=== PATIENT | female | born 1975 | race Caucasian/White ===

== ENCOUNTER 2018-05-17 20:07 | Inpatient (IN) | payer OTHER ==
[~2018-05-17] VITALS: Ht 157.5 cm; Wt 87.5 kg
[~2018-05-17 20:07] MED LIST: ACET-5634 PO; CIPR500T4 PO; FERR325E14 PO; GABA300C PO; GLIP10TE PO; LISI10TA11 PO; METF500T2 PO; PIOG15TA2 PO; SULF1TAB12 PO; [UNRECOGNIZED DRUG - CODE] PO
[2018-05-17 20:08] VITALS: BP 158/94
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
[2018-05-17] MEDS ORDERED: PIPERACILLIN/TAZOBACTAM 3.375 GM in DEXTROSE 5% 50 ML IV ONE (20:45)
[2018-05-17] MEDS ORDERED: NACL 0.9% 1,000 ML IV ONE (20:45)
[2018-05-17] MEDS ORDERED: PIPERACILLIN/TAZOBACTAM 3.375 GM VIAL IV ONE (21:01)
[2018-05-17 21:14] LABS: BASOPHILS % (AUTO) 0.4 % (0.0-2.0); EOSINOPHILS % (AUTO) 0.3 % (0.0-4.0); HEMOGLOBIN 12.7 g/dL (12.0-16.0); LYMPHOCYTES # (AUTO) 1.1 K/uL (2.5-16.5); MEAN CORPUSCULAR HEMOGLOBIN 30 pg (27-31); MEAN CORPUSCULAR HGB CONC 34 g/dL (33-37); MEAN CORPUSCULAR VOLUME 85.8 fL (80-94); MONOCYTES # (AUTO) 0.7 K/uL (0.8-1.0); MONOCYTES % (AUTO) 9.3 % (1.7-9.3); NEUTROPHILS # (AUTO) 5.2 K/uL (1.8-7.7); PLATELET COUNT (AUTO) 194 K/uL (140-450); RED BLOOD CELL COUNT(AUTO) 4.31 MIL/uL (4.20-5.40); RED CELL DISTRIBUTION WIDTH 13.8 % (11.6-13.7); WHITE BLOOD COUNT (AUTO) 7.1 K/uL (4.8-10.8)
[2018-05-17] MEDS ORDERED: MORPHINE SULFATE 4 MG/ML SYR IVP ONE (21:15)
[2018-05-17 21:22] LABS: ANION GAP 8.4 (8-16); CARBON DIOXIDE 30.3 mmol/L (21-32); CHLORIDE 95 mmol/L (98-107); CREATININE 0.8 mg/dL (0.6-1.3); GFR ARICAN-AMERICAN 101 mL/min (>90); GLUCOSE 304 mg/dL (74-106); POTASSIUM 3.7 mmol/L (3.5-5.1); SODIUM SERUM 130 mmol/L (136-145); UREA NITROGEN, BLOOD 8 mg/dL (7-18)
[2018-05-17 21:28] LABS: ASPARTATE AMINOTRANSFERASE 68 U/L (15-37); TOTAL BILIRUBIN 1.4 mg/dL (0.0-1.0)
[2018-05-17 21:33] LABS: BILIRUBIN,URINE 1+ (NEGATIVE); BLOOD, URINE NEGATIVE (NEGATIVE); LEUKOCYTE ESTERASE ,URINE NEGATIVE (NEGATIVE); NITRITE, URINE NEGATIVE (NEGATIVE); PH,URINE 7.5 (5.0-9.0); UGLUCOSE 3+ (NEGATIVE)
[2018-05-17 21:38] LABS: APPEARANCE,URINE CLEAR (CLEAR); COLOR,URINE AMBER (YELLOW)
--- NOTE | 2018-05-17 22:00 | NUR ---
PT RESTING COMFORTABLY IN BED, RR EVEN AND UNLABORED. ALL NEEDS MET AT THIS TIME.
[2018-05-17] MEDS: NACL 0.9% 1,000 ML IV SCH (22:55)
[2018-05-17] MEDS ORDERED: VANCOMYCIN PER PHARMACY MC PRN (22:55)
[2018-05-17] MEDS ORDERED: ONDANSETRON 4 MG/2 ML VIAL IVP PRN (22:55)
[2018-05-17] MEDS ORDERED: DEXTROSE 50% 50 ML SYR IVP PRN (23:05)
[2018-05-17 23:30] VITALS: BP 169/87
[2018-05-17] MEDS ORDERED: VANCOMYCIN 1,500 MG in DEXTROSE 5% 500 ML IV SCH (23:30)
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
--- NOTE | 2018-05-17 23:30 | NUR ---
Patient will be admitted to care of DR. PEREZ. Admited to [facility]. Will go to room 116. Belongings list completed. Report to CARRI MADDOX.
--- NOTE | 2018-05-17 23:55 | NUR ---
Patient's Plan of Care was discussed and reviewed with ELECTRICAL MANUFACTURING TECHNICIAN: VARSHA LOMBARDO
[2018-05-18] MEDS ORDERED: DEXTROSE 50% 50 ML SYR IVP PRN (00:05)
[2018-05-18] MEDS ORDERED: VANCOMYCIN 1,000 MG VIAL ONE ×2 (00:28)
[2018-05-18] MEDS ORDERED: PIPERACILLIN/TAZOBACTAM 3.375 GM VIAL IV ONE (00:29)
[2018-05-18] MEDS: NACL 0.9% 1,000 ML IV SCH ×2 (00:52→13:35)
--- NOTE | 2018-05-18 01:13 | NUR ---
INFORMED DR. CORTEZ, PATIENT BLOOD PRESSURE HAS BEEN HIGH SINCE PATIENT CAME TO FLOOR, BP - 178/94 LOWEST AND HIGHEST - 185/96, HR - 99 TO 114. ORDERED PRN CLONIDINE FOR PATIENT.
[2018-05-18] MEDS ORDERED: cloNIDine 0.1 MG TAB PO PRN (01:15)
--- NOTE | 2018-05-18 01:35 | NUR ---
MEDICATED WITH CLONIDINE 0.1 MG PO ORDERED.
--- NOTE | 2018-05-18 01:45 | NUR ---
COMPLAINT OF FEELING WARM. TEMP CHECKED - 102.4 F, MEDICATED WITH TYLENOL ORDERED. COOLING MEASURES GIVEN.
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
[2018-05-18] MEDS ORDERED: ACETAMINOPHEN 325 MG TAB PO PRN (02:05)
--- NOTE | 2018-05-18 03:05 | NUR ---
BP CHECKED - 146/86, HR - 96. CALM AND RESTING COMFORTABLY IN BED.
[2018-05-18 04:00] VITALS: BP 148/85
[2018-05-18] MEDS: oxyCODONE/APAP 5/325 MG 1 TAB TAB PO PRN ×4 (04:38→18:44)
--- NOTE | 2018-05-18 04:43 | NUR ---
TEMPERATURE CHECKED - 99.1, AFEBRILE.
[2018-05-18] MEDS ORDERED: PIPERACILLIN/TAZOBACTAM 3.375 GM in DEXTROSE 5% 50 ML IV SCH (05:00)
[2018-05-18] MEDS: INSULIN LISPRO SLIDING SCALE 100 UNITS/ML VIAL SUBQ PRN ×2 (06:14→12:00)
--- NOTE | 2018-05-18 06:33 | NUR ---
CONDITION REMAIN STABLE. ALL NEEDS ATTENDED. WILL ENDORSE TO AM NURSE FOR CONTINUITY OF CARE.
[2018-05-18 06:52] LABS: BASOPHILS # (AUTO) 0.1 K/uL (0.00-0.22); BASOPHILS % (AUTO) 1.4 % (0.0-2.0); EOSINOPHILS % (AUTO) 0.1 % (0.0-4.0); HEMATOCRIT 31.2 % (36-48); HEMOGLOBIN 11.2 g/dL (12.0-16.0); LYMPHOCYTES # (AUTO) 1.2 K/uL (2.5-16.5); LYMPHOCYTES % (AUTO) 13.5 % (20.5-51.1); MEAN CORPUSCULAR HEMOGLOBIN 31 pg (27-31); MEAN CORPUSCULAR HGB CONC 36 g/dL (33-37); MEAN CORPUSCULAR VOLUME 85.4 fL (80-94); MONOCYTES # (AUTO) 0.6 K/uL (0.8-1.0); MONOCYTES % (AUTO) 6.2 % (1.7-9.3); NEUTROPHILS # (AUTO) 7.2 K/uL (1.8-7.7); NEUTROPHILS % (AUTO) 78.8 % (42.2-75.2); PLATELET COUNT (AUTO) 172 K/uL (140-450); RED BLOOD CELL COUNT(AUTO) 3.66 MIL/uL (4.20-5.40); RED CELL DISTRIBUTION WIDTH 13.8 % (11.6-13.7); WHITE BLOOD COUNT (AUTO) 9.1 K/uL (4.8-10.8)
[2018-05-18 07:08] LABS: ALBUMIN 2.5 g/dL (3.4-5.0); ANION GAP 11.3 (8-16); CARBON DIOXIDE 26.3 mmol/L (21-32); CREATININE 0.7 mg/dL (0.6-1.3); POTASSIUM 3.6 mmol/L (3.5-5.1); TOTAL BILIRUBIN 1.5 mg/dL (0.0-1.0)
--- NOTE | 2018-05-18 07:25 | NUR ---
ENDORSED TO AM NURSE FOR CONTINUITY OF CARE.
--- NOTE | 2018-05-18 07:26 | NUR ---
PATIENT IS SLEEPING. NO SIGNS OF DISTRESS ON ROOM AIR. L LEG WOUND/CELLULITIS SITE MONITOR. MINIMAL DRAINAGE SEROSANGUINEOUS. IV ON L AC 20G INFUSING NS AT 75. IV IS CLEAN, DRY AND INTACT. BED SIDE COMMODE AT BEDSIDE. PATIENT HAS WEAKNESS FROM THE PAIN ON L LEG. BED IN LOW POSITION. CALL LIGHT WITHIN REACH. WILL CONTINUE TO MONITOR THE PATIENT.
[2018-05-18] MEDS ORDERED: BLOOD GLUCOSE MONITORING 1 DEV DEV FS SCH (07:30)
[2018-05-18] MEDS: BLOOD GLUCOSE MONITORING 1 DEV DEV FS SCH ×4 (07:38→21:00)
[2018-05-18 08:00] VITALS: BP 125/81
[2018-05-18] MEDS: LISINOPRIL 10 MG TAB PO SCH (08:55)
[2018-05-18] MEDS: PIOGLITAZONE 15 MG TAB PO SCH (08:55)
[2018-05-18] MEDS: FERROUS SULFATE 325 MG TABEC PO SCH ×2 (08:55→17:26)
[2018-05-18] MEDS: glipiZIDE ER 5 MG TABER PO SCH (08:56)
[2018-05-18] MEDS: ENOXAPARIN 40 MG/0.4 ML SYR SUBQ SCH (08:59)
[2018-05-18] MEDS ORDERED: PIOGLITAZONE 15 MG TAB PO SCH (09:00)
[2018-05-18] MEDS ORDERED: FERROUS SULFATE 325 MG TABEC PO SCH (09:00)
[2018-05-18] MEDS ORDERED: glipiZIDE ER 5 MG TABER PO SCH (09:00)
[2018-05-18] MEDS ORDERED: METFORMIN HCL 1000 MG PO SCH (09:00)
[2018-05-18] MEDS ORDERED: VANCOMYCIN 1GM/DEXT 5% PREMIX 200 ML IV SCH (09:00)
[2018-05-18] MEDS ORDERED: LISINOPRIL 10 MG TAB PO SCH (09:00)
--- NOTE | 2018-05-18 09:25 | NUR ---
CHANGED BEDSHEETS WITH STAFF ASSISTANT. PATIENT DROPPED COFFEE. PATIENT SITTING ON CHAIR. TRANSFERRED FROM CHAIR TO BEDSIDE COMMODE, WEAKNESS FROM L LEG CELLULITIS/WOUND. GOT A URINE SAMPLE. PATIENT BACK IN BED. ADMINISTERED MEDS AND PRN PAIN MED. PATIENT TOLERATED WELL. CLEANSED WOUND WITH NS AND PLACED A BANDAGE. BED IN LOW POSITION. CALL LIGHT WITHIN REACH. WILL CONTINUE TO MONITOR THE PATIENT.
--- NOTE | 2018-05-18 10:17 | NUR ---
PATIENT HAS BEEN SCREENED AND CATEGORIZED HIGH NUTRITION RISK. PATIENT WILL BE SEEN WITHIN 1-2 DAYS OF ADMISSION. 05/18/18 05/19/[address]
--- NOTE | 2018-05-18 11:18 | NUR ---
PATIENT IS SLEEPING. NO SIGNS OF DISTRESS ON ROOM AIR. BED IN LOW POSITION. CALL LIGHT WITHIN REACH. WILL CONTINUE TO MONITOR THE PATIENT.
[2018-05-18] MEDS: PIPER/TAZO 3.375GM/D5W PREMIX 50 ML IV SCH ×3 (12:01→23:36)
--- NOTE | 2018-05-18 12:04 | NUR ---
ADMINISTERED MEDS. PATIENT TOLERATED WELL. BED IN LOW POSITION. CALL LIGHT WITHIN REACH. WILL CONTINUE TO MONITOR THE PATIENT.
--- NOTE | 2018-05-18 13:37 | NUR ---
ADMINISTERED PAIN MEDS. PATIENT TOLERATED WELL. IVF NS INFUSING AT 75, IV IS CLEAN, DRY AND INTACT. WAITING FOR PHARMACY FOR THE VANCOMYCIN.
[2018-05-18] MEDS: VANCOMYCIN 1,250 MG in DEXTROSE 5% 250 ML IV SCH (14:33)
--- NOTE | 2018-05-18 14:41 | NUR ---
ADMINISTERED MEDS. PATIENT TOLERATED WELL. IV IS CLEAN, DRY AND INTACT. WILL CONTINUE TO MONITOR THE PATIENT
[2018-05-18 16:00] VITALS: BP 111/77
--- NOTE | 2018-05-18 16:55 | NUR ---
FAXED INITIAL REVIEW TO [facility] [phone] PHONE ELÍAS [phone]
[2018-05-18] MEDS: metFORMIN 500 MG TAB PO SCH (17:27)
--- NOTE | 2018-05-18 17:30 | NUR ---
ADMINISTERED MEDS. PATIENT TOLERATED WELL. PATIENT USED BEDSIDE COMMODE, PATIENT BACK ON BED. WILL CONTINUE TO MONITOR THE PATIENT.
--- NOTE | 2018-05-18 19:15 | NUR ---
GAVE BEDSIDE REPORT TO OPTIONS TRADER NURSE. PATIENT IS IN STABLE CONDITION
--- NOTE | 2018-05-18 19:17 | NUR ---
RECEIVED REPORT FROM DAY SHIFT NURSE. AAOX4. NO C/O PAIN. NO RESP DISTRESS NOTED. IV TO LEFT AC #20G, NS AT 75 ML/HR, INFUSING WELL. DRESSING TO LEFT LOWER EXT., CLEAN, DRY AND INTACT. DISCUSSED PLAN OF CARE. PT VERBALIZED UNDERSTANDING. SAFETY PRECAUTION IN PLACE. CALL LIGHT WITHIN REACH.
[2018-05-18] MEDS ORDERED: GABAPENTIN 300 MG CAP PO SCH (21:00)
--- NOTE | 2018-05-18 21:00 | NUR ---
BS CHECKED 138. NO INSULIN COVERAGE. DUE MEDS GIVEN. PT TOLERATED WELL. PT ASKED FOR SNACK. SNACK PROVIDED. NO C/O PAIN.
--- NOTE | 2018-05-18 23:15 | NUR ---
DRESSING CHANGED TO LEFT LOWER EXT. PT DENIES PAIN.
[2018-05-19] VITALS: BP 117/73
[2018-05-19] MEDS: NACL 0.9% 1,000 ML IV SCH (01:35)
[2018-05-19] MEDS: VANCOMYCIN 1,250 MG in DEXTROSE 5% 250 ML IV SCH ×3 (01:40→15:43)
--- NOTE | 2018-05-19 01:50 | NUR ---
PT SLEEPING BUT EASILY AROUSABLE. NO S/S OF DISTRESS NOTED. SAFETY PRECAUTION IN PLACE.
[2018-05-19] MEDS: oxyCODONE/APAP 5/325 MG 1 TAB TAB PO PRN ×2 (03:16→10:23)
--- NOTE | 2018-05-19 03:16 | NUR ---
PT C/O LEFT LOWE LED PAIN 6/10 SCALE. PERCOCET 5/325 MG GIVEN ORDERED.
[2018-05-19] MEDS: PIPER/TAZO 3.375GM/D5W PREMIX 50 ML IV SCH ×2 (05:29→12:18)
--- NOTE | 2018-05-19 05:40 | NUR ---
PT SLEEPING BUT AROUSABLE. RESP EVEN AND UNLABORED. NO S/S OF PAIN. SAFETY PRECAUTION IN PLACE.CALL LIGHT WITHIN REACH.
[2018-05-19] MEDS: INSULIN LISPRO SLIDING SCALE 100 UNITS/ML VIAL SUBQ PRN ×2 (06:35→12:12)
--- NOTE | 2018-05-19 07:20 | NUR ---
ENDORSED PT TO DAY SHIFT NURSE. PT IN STABLE CONDITION.
[2018-05-19 07:21] LABS: BASOPHILS % (AUTO) 0.8 % (0.0-2.0); EOSINOPHILS # (AUTO) 0.1 K/uL (0-0.4); EOSINOPHILS % (AUTO) 2.9 % (0.0-4.0); HEMATOCRIT 31.2 % (36-48); LYMPHOCYTES # (AUTO) 1.4 K/uL (2.5-16.5); LYMPHOCYTES % (AUTO) 31.9 % (20.5-51.1); MEAN CORPUSCULAR HEMOGLOBIN 30 pg (27-31); MEAN CORPUSCULAR HGB CONC 35 g/dL (33-37); MONOCYTES # (AUTO) 0.5 K/uL (0.8-1.0); MONOCYTES % (AUTO) 10.6 % (1.7-9.3); NEUTROPHILS # (AUTO) 2.4 K/uL (1.8-7.7); NEUTROPHILS % (AUTO) 53.8 % (42.2-75.2); PLATELET COUNT (AUTO) 178 K/uL (140-450); RED BLOOD CELL COUNT(AUTO) 3.63 MIL/uL (4.20-5.40); RED CELL DISTRIBUTION WIDTH 13.3 % (11.6-13.7); WHITE BLOOD COUNT (AUTO) 4.5 K/uL (4.8-10.8)
--- NOTE | 2018-05-19 07:30 | NUR ---
RECEIVED PT AAOX4. NO SOB NOTED. NO C/O PAIN AT THIS TIME. IV TO LT AC PATENT AND INTACT. CHEST CLEAR. ABDOMEN SOFT, BOWEL SOUNDS PRESENT. LEFT LEG WOUND DRESSING DRY AND INTACT. INSTRUCTED PT TO CALL FOR ASSISTANCE, CALL LIGHT WITHIN REACH, PT VERBALIZED UNDERSTANDING.
[2018-05-19] MEDS: BLOOD GLUCOSE MONITORING 1 DEV DEV FS SCH ×2 (07:39→12:11)
[2018-05-19 08:00] VITALS: BP 130/81
[2018-05-19 08:49] LABS: CREATININE 0.6 mg/dL (0.6-1.3); POTASSIUM 3.6 mmol/L (3.5-5.1)
--- NOTE | 2018-05-19 09:00 | NUR ---
PT REFUSED ALL DUE MEDICATIONS AND STATED SHE WANTS TO GO HOME AGAINST MEDICAL ADVICE. RISKA AND CONSEQUENCES EXPALINED TO PT, VERBALIZED UNDERSTANDING. Addendum: 05/19/18 at 1234 by Lyn Reyes RN PT STATED SHE WANTS TO GO IF DOCTOR ANA STILL PUT HER ON ORAL PAIN MEDS, PT STATED ORAL PAIN MEDS CAN NOT CONTROL HER LEG PAIN. DR. PEREZ NOTIFIED.
[2018-05-19 09:02] LABS: ANION GAP 9.7 (8-16); CARBON DIOXIDE 27.9 mmol/L (21-32)
--- NOTE | 2018-05-19 09:30 | NUR ---
SPOKE WITH PT'S SISTER MAYRA ([phone]) REGARDING PT'S PLAN OF GOING HOME AGAINST MEDICAL ADVICE, MAYRA STATED SHE WILL NOT CONSULTING PROPERTY MANAGER THE PT IF THERE IS NO ACTUAL DISCHARGE ORDER FROM THE DOCTOR. PT MADE AWARE.
[2018-05-19] MEDS: FERROUS SULFATE 325 MG TABEC PO SCH (10:24)
[2018-05-19] MEDS: glipiZIDE ER 5 MG TABER PO SCH (10:24)
[2018-05-19] MEDS: LISINOPRIL 10 MG TAB PO SCH (10:25)
[2018-05-19] MEDS: PIOGLITAZONE 15 MG TAB PO SCH (10:25)
[2018-05-19] MEDS: metFORMIN 500 MG TAB PO SCH (10:25)
[2018-05-19] MEDS: ENOXAPARIN 40 MG/0.4 ML SYR SUBQ SCH (10:26)
--- NOTE | 2018-05-19 10:58 | NUR ---
NOTIFIED TERESA (PT) REGARDING THE PT EVAL.
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
--- NOTE | 2018-05-19 14:03 | NUR ---
FAXED CONCURRENT REVIEW TO [facility] [phone] PHONE ELÍAS [phone]
--- NOTE | 2018-05-19 14:45 | NUR ---
Marketing Forecaster Notes: I met with patient to discuss, her status, discharge plan, and MD recommendations. Per Patient she wants to discharge today to her sister in law's. I asked Patient if she be willing or consider going to a SNF short term for antibiotics, P.T. and wound care if MD makes the recommendations. Patient got really upset and started to cry and raised her voice stating " I do not want to go to a [facility] fpc" I want to go today" Patient then got in the phone and call her sister In Law "Leila" She was crying and upset on the phone explaining her that she wanted to discharge today. She then ask me to talk to her. I explained to Leila what I previously explained to Patient. Per Leila (Sister in- Law) She will not shrimp picker patient and take her home if she lives AMA or with out a discharge plan. Patient calm down and give her the phone back to speak to her sister In-Law. Patient told her she will do whatever she wants and will probably will discharge today. When Patient Hang up I asked her again if she will go to SNF if recommended. Patient stated " No I dont want to go, I will go with my boyfriend if Leila (sister In-Law) wont pick me up; But I will need a bus pass" I thanked her for the information and I ended that meeting.
--- NOTE | 2018-05-19 15:40 | NUR ---
EXPLAINED TO PT DR. PEREZ' ORDER FOR SNF FOR REHAB AND WOUND CARE BUT PT REFUSED AND SIGNED AMA. RISKS AND CONSEQUENCES EXPLAINED TO PT, VERBALIZED UNDERSTANDING.
[2018-05-19 16:00] VITALS: BP 129/75
--- NOTE | 2018-05-19 16:15 | NUR ---
PRESENT IV REMOVED, CANNULA TIP INTACT. DRESSING TO LEFT LEG WOUND DRY AND INTACT. PT PROVIDED WITH DRESSING SUPPLIES, WOUND CARE TEACHINGS GIVEN, VERBALIZED UNDERSTANDING/ PT WHEELED TO THE PARKING LOT IN STABLE CONDITION. PT WENT AMA, PT'S SISTER MAYRA IS GIVING THE PT RIDE TO HER BOYFRIEND'S PLACE. DR. PEREZ NOTIFIED WITH THE AMA.
--- NOTE | 2018-05-19 16:24 | NUR ---
05/19/18 RD INITIAL ASSESSMENT COMPLETED PLEASE REFER TO NUTRITION ASSESSMENT UNDER CARE ACTIVITY FOR ESTIMATED NUTRITIONAL NEEDS. [facility]. [facility] 2. ADDITIONAL FOLLOW-UP NUTRITION EDUCATION IF NEEDED 3. RD TO FOLLOW-UP 5-7 DAYS, LOW RISK RISK ROCIO HIDALGO, RD
[2018-05-20] MEDS ORDERED: VANCOMYCIN 1,250 MG in DEXTROSE 5% 250 ML IV SCH (03:00)
[2018-05-20] MEDS ORDERED: NACL 0.9% IRR 250 ML BOTTLE IR SCH (13:00)
== END 2018-05-19 16:15 | disposition left against medical advice (07) | DRG 383 ==
LOC: MED 20:07 → MTU 23:03
PROVIDERS: ADMIT Hospitalist; ATTEND Hospitalist
DX: L03.116 Cellulitis of left lower limb (principal); E11.42 Type 2 diabetes mellitus with diabetic polyneuropathy; E44.1 Mild protein-calorie malnutrition; I10 Essential (primary) hypertension; S81.832A Puncture wound without foreign body, left lower leg, initial encounter; E87.1 Hypo-osmolality and hyponatremia; F10.10 Alcohol abuse, uncomplicated; F17.210 Nicotine dependence, cigarettes, uncomplicated; E11.65 Type 2 diabetes mellitus with hyperglycemia; W17.89XA Other fall from one level to another, initial encounter; Z53.21 Procedure and treatment not carried out due to patient leaving prior to being seen by health care provider; Z59.0 Homelessness; Z68.35 Body mass index [BMI] 35.0-35.9, adult; Z91.19 Patient's noncompliance with other medical treatment and regimen; Y93.89 Activity, other specified; Y92.89 Other specified places as the place of occurrence of the external cause; Y99.8 Other external cause status
CPT/HCPCS: 36415; 71045; 80048; 80053; 80202; 81003; 82948; 83036; 85025; 87040; 87070; 87081; 87086; 87186; 93005; 96365; 96375; 97110; 97140; 99285; G0482; J1650; J1815; J2270; J2543; J3370; J7030; J7060; Q0092

== ENCOUNTER 2019-09-06 11:01 | Inpatient (IN) | payer OTHER ==
[~2019-09-06] VITALS: Ht 167.6 cm; Wt 81.6 kg
[2019-09-06 11:01] VITALS: BP 144/97
--- NOTE | 2019-09-06 11:01 | NUR ---
Patient BIBA BLS, transferred to bed 3. RN evaluating patient at bedside.
--- NOTE | 2019-09-06 11:11 | NUR ---
C/O N/V SINCE LAST NIGHT WITH GENERALIZED BODY PAIN, PT STATES "EVERYTHING HURTS" PT WAS FOUND EHIND STATER BROTHERS HX HTN, DM, PT IS NON COMPLIANT WITH MEDICATIONS . DENIES N/V/D; SKIN IS PINK/WARM/DRY; AAOX4 WITH EVEN AND STEADY GAIT; LUNGS CLEAR BL; HR EVEN AND REGULAR; PT DENIES ANY FEVER, CP, SOB, OR COUGH AT THIS TIME; PATIENT STATES PAIN OF 7/10 AT THIS TIME; VSS; PATIENT POSITIONED FOR COMFORT; HOB ELEVATED; BEDRAILS UP X2; BED DOWN. ER MD MADE AWARE OF PT STATUS.
[2019-09-06] MEDS ORDERED: NACL 0.9% 2,000 ML IV SCH (11:36)
[2019-09-06] MEDS ORDERED: ONDANSETRON 4 MG/2 ML VIAL IVP ONE ×2 (11:40→14:10)
[2019-09-06] MEDS ORDERED: KETOROLAC 30 MG/ML VIAL IVP ONE (11:40)
--- NOTE | 2019-09-06 12:06 | NUR ---
Dr. Godinez evaluating patient at bedside.
[2019-09-06 12:53] LABS: ANION GAP 11.3 (8-16); CREATININE 0.7 mg/dL (0.6-1.3); POTASSIUM 4.3 mmol/L (3.5-5.1)
[2019-09-06] MEDS ORDERED: PIPERACILLIN/TAZOBACTAM 3.375 GM in DEXTROSE 5% 50 ML IV ONE (12:55)
[2019-09-06 13:01] LABS: ALBUMIN 2.5 g/dL (3.4-5.0); TOTAL BILIRUBIN 1.7 mg/dL (0.0-1.0)
[2019-09-06] MEDS ORDERED: INSULIN REGULAR, HUMAN 100 UNIT/ML VIAL SUBQ ONE (13:05)
[2019-09-06] MEDS ORDERED: PIPERACILLIN/TAZOBACTAM 3.375 GM VIAL IV ONE (13:19)
[2019-09-06] MEDS ORDERED: LACTULOSE 20 GM/30 ML UDC PO ONE (13:25)
[2019-09-06 13:49] LABS: HEMATOCRIT 36.2 % (36-48); HEMOGLOBIN 12.1 g/dL (12.0-16.0); MEAN CORPUSCULAR HEMOGLOBIN 28 pg (27-31); MEAN CORPUSCULAR HGB CONC 33 g/dL (33-37); MEAN CORPUSCULAR VOLUME 84.2 fL (80-94); PLATELET COUNT (AUTO) 183 K/uL (140-450); RED BLOOD CELL COUNT(AUTO) 4.31 MIL/uL (4.20-5.40); RED CELL DISTRIBUTION WIDTH 16.2 % (11.6-13.7); WHITE BLOOD COUNT (AUTO) 2.9 K/uL (4.8-10.8)
[2019-09-06 14:24] LABS: BARBITURATE, URINE NEG. ng/ml (NEG <=200); BENZODIAZEPINE, URINE NEG. ng/mL (NEG <=200); CANNABINOID, URINE NEG. ng/mL (NEG <=50); COCAINE, URINE NEG. ng/mL (NEG <=300); OPIATE, URINE NEG. ng/mL (NEG <=2000); PHENCYCLIDINE SCREEN,URINE NEG. ng/mL (NEG <=25)
--- NOTE | 2019-09-06 14:24 | NUR ---
PT THROWED UP AFTER EATTING LUNCH, ZOFRAN GIVEN ORDERED.
[2019-09-06 14:29] LABS: APPEARANCE,URINE SL CLOUDY (CLEAR); BILIRUBIN,URINE 2+ (NEGATIVE); BLOOD, URINE NEGATIVE (NEGATIVE); COLOR,URINE ORANGE (YELLOW); LEUKOCYTE ESTERASE ,URINE TRACE (NEGATIVE); NITRITE, URINE POSITIVE (NEGATIVE); UGLUCOSE 3+ (NEGATIVE)
[2019-09-06 14:35] LABS: LYMPHOCYTES % (MANUAL) 28 % (20-46); MONOCYTES % (MANUAL) 7 % (5-12)
[2019-09-06 14:56] LABS: RBC,URINE NONE SEEN /HPF (0-5); WBC,URINE 0-5 /HPF (0-5)
--- NOTE | 2019-09-06 15:00 | NUR ---
pt sleeping in bed. no s/s of respiratory distress noted.
[2019-09-06] MEDS ORDERED: DEXTROSE 50% 50 ML SYR IVP PRN (15:35)
[2019-09-06] MEDS ORDERED: ONDANSETRON 4 MG/2 ML VIAL IVP PRN (15:40)
[2019-09-06] MEDS ORDERED: HYDROcodone/APAP 5/325 MG 1 TAB TAB PO PRN (15:40)
[2019-09-06] MEDS ORDERED: ACETAMINOPHEN 325 MG TAB PO PRN (15:40)
[2019-09-06] MEDS ORDERED: ALBUTEROL 0.083% 2.5 MG/3 ML NEBU INH PRN (15:40)
[2019-09-06] MEDS: BLOOD GLUCOSE MONITORING 1 DEV DEV FS SCH ×2 (16:30→21:10)
--- NOTE | 2019-09-06 16:39 | NUR ---
Pt report given to Clay brasher . Transfer of care at this time. pt went to [address] tele
[2019-09-06 16:40] VITALS: BP 130/80
[2019-09-06] MEDS: NACL 0.9% 1,000 ML IV SCH (17:18)
[2019-09-06] MEDS: MORPHINE SULFATE 4 MG/ML SYR IVP PRN ×2 (17:19→21:06)
[2019-09-06] MEDS: FERROUS SULFATE 325 MG TABEC PO SCH (17:20)
--- NOTE | 2019-09-06 17:30 | NUR ---
SCHEDULED MEDICATIONS DUE GIVEN. WILL CONTINUE TO MONITOR.
[2019-09-06] MEDS: INSULIN LISPRO SLIDING SCALE 100 UNITS/ML VIAL SUBQ PRN ×2 (18:00→21:10)
--- NOTE | 2019-09-06 19:30 | NUR ---
RECEIVED PT SLEEPING, EASILY AROUSABLE, AAOX4, VITAL SIGNS TAKEN, BP SLIGHTLY ELEVATED, DENIES CHEST PAIN BUT COMPLAINING OF ABDOMINAL PAIN, WILL MEDICATE PRN, IVF INFUSING WELL, PLAN OF CARE DISCUSSED, INSTRUCTED NPO AFTER MIDNIGHT FOR US ABDOMEN TOMORROW AM, SAFETY MEASURES IN PLACE, CALL LIGHT WITHIN REACH.
--- NOTE | 2019-09-06 19:49 | NUR ---
GAVE REPORT TO TOOLROOM CLERK NURSE FOR CONTINUITY OF CARE. PATIENT IN STABLE CONDITION.
[2019-09-06 20:00] VITALS: BP 148/90
--- NOTE | 2019-09-06 20:23 | NUR ---
PATIENT IS UNABLE TO DO INCENTIVE SPIROMETER AT THIS TIME. ROOM AIR SATS 96%. NO SOB NOTED
[2019-09-06] MEDS: GABAPENTIN 300 MG CAP PO SCH (21:05)
--- NOTE | 2019-09-06 21:10 | NUR ---
BLOOD SUGAR CHECKED WITH 223 RESULT, COVERAGE GIVEN, SNACK PROVIDED, DUE MEDICATION ADMINISTERED WITH EDUCATION PROVIDED, ALL NEEDS ATTENDED.
[2019-09-07] VITALS: BP 154/95
--- NOTE | 2019-09-07 | NUR ---
PT SLEEPING, EASILY AROUSABLE, VITAL SIGNS TAKEN, BP SLIGHTLY ELEVATED, DENIES CHEST PAIN BUT COMPLAINING OF LEG PAIN,MADE AWARE OF NEXT DUE TIME, PT FORGETFUL AT TIMES, REORIENT TO TIME AND PLACE, IVF INFUSING WELL, CONTINUE TO MONITOR CLOSELY.
[2019-09-07] MEDS: MORPHINE SULFATE 4 MG/ML SYR IVP PRN ×5 (01:38→21:16)
--- NOTE | 2019-09-07 01:40 | NUR ---
PT AMBULATED TO BR WITH ASSIST, VOIDED FREELY, ASSISTED BACK TO BED, COMPLAINING OF LEG PAIN, MEDICATED PRN WITH MORPHINE IVP, MONITORED CLOSELY.
[2019-09-07 04:00] VITALS: BP 140/87
--- NOTE | 2019-09-07 04:00 | NUR ---
PT SLEEPING, EASILY AROUSABLE, VITAL SIGNS STABLE, DENIES ANY PAIN, IVF INFUSING WELL, MONITORED CLOSELY.
[2019-09-07] MEDS: NACL 0.9% 1,000 ML IV SCH ×2 (05:54→18:31)
[2019-09-07] MEDS: INSULIN LISPRO SLIDING SCALE 100 UNITS/ML VIAL SUBQ PRN ×4 (05:58→20:38)
--- NOTE | 2019-09-07 06:00 | NUR ---
AM LABS DRAWN, BLOOD SUGAR CHECKED WITH 182 RESULT, COVERAGE GIVEN, MEDICATED PRN FOR LEG PAIN WITH MORPHINE IVP, MONITORED CLOSELY.
[2019-09-07 06:29] LABS: BASOPHILS % (AUTO) 0.6 % (0.0-2.0); EOSINOPHILS # (AUTO) 0.1 K/uL (0-0.4); EOSINOPHILS % (AUTO) 2.1 % (0.0-4.0); HEMATOCRIT 31.3 % (36-48); HEMOGLOBIN 10.4 g/dL (12.0-16.0); LYMPHOCYTES # (AUTO) 0.8 K/uL (2.5-16.5); LYMPHOCYTES % (AUTO) 29.7 % (20.5-51.1); MEAN CORPUSCULAR HEMOGLOBIN 28 pg (27-31); MEAN CORPUSCULAR HGB CONC 33 g/dL (33-37); MEAN CORPUSCULAR VOLUME 84.3 fL (80-94); MONOCYTES # (AUTO) 0.4 K/uL (0.8-1.0); MONOCYTES % (AUTO) 13.8 % (1.7-9.3); NEUTROPHILS # (AUTO) 1.4 K/uL (1.8-7.7); NEUTROPHILS % (AUTO) 53.8 % (42.2-75.2); PLATELET COUNT (AUTO) 155 K/uL (140-450); RED BLOOD CELL COUNT(AUTO) 3.72 MIL/uL (4.20-5.40); RED CELL DISTRIBUTION WIDTH 16.2 % (11.6-13.7); WHITE BLOOD COUNT (AUTO) 2.6 K/uL (4.8-10.8)
[2019-09-07] MEDS: BLOOD GLUCOSE MONITORING 1 DEV DEV FS SCH ×4 (06:33→20:40)
[2019-09-07 06:52] LABS: ALBUMIN 2.1 g/dL (3.4-5.0); ANION GAP 9.1 (8-16); CARBON DIOXIDE 26.6 mmol/L (21-32); CREATININE 0.6 mg/dL (0.6-1.3); POTASSIUM 3.7 mmol/L (3.5-5.1); TOTAL BILIRUBIN 0.9 mg/dL (0.0-1.0)
[2019-09-07 06:54] LABS: MAGNESIUM 1.4 mg/dL (1.8-2.4); PHOSPHORUS 3.2 mg/dL (2.5-4.9)
--- NOTE | 2019-09-07 07:15 | NUR ---
RECEIVED BEDSIDE REPORT FROM CALIBRATION LABORATORY TECHNICIAN NURSE. PT IS GETTING ABD US AT THIS TIME. PT IN NO ACUTE DISTRESS OR SOB. PT IS ON ROOM AIR, SKIN INTACT, ALTHOUGH DRY SCABS NOTED ON BILATERAL ARMS. IV SITE NOTED IN THE L HAND 24 G, INFUSING NS 75 ML/HR. FALL PRECAUTIONS IN PLACE, CALL LIGHT IS WITHIN REACH. WILL CONTINUE TO MONITOR.
--- NOTE | 2019-09-07 07:17 | NUR ---
PT CURRENTLY HAVING ULTRASOUND OF ABDOMEN TAKEN AT BEDSIDE, NO DISTRESS NOTED, REPORT GIVEN TO REJI CARDONA FOR CONTINUITY OF CARE.
[2019-09-07 08:00] VITALS: BP 146/86
--- NOTE | 2019-09-07 08:25 | NUR ---
PATIENT HAS BEEN SCREENED AND CATEGORIZED MODERATE NUTRITION RISK. PATIENT WILL BE SEEN WITHIN 3-5 DAYS OF ADMISSION. 09/09/19 09/11/[address]
[2019-09-07] MEDS ORDERED: MULTIVIT TH IRON OTHER MIN PO SCH (09:00)
[2019-09-07] MEDS: glipiZIDE ER 5 MG TABER PO SCH (09:11)
[2019-09-07] MEDS: LISINOPRIL 10 MG TAB PO SCH (09:12)
[2019-09-07] MEDS: PIOGLITAZONE 15 MG TAB PO SCH (09:12)
[2019-09-07] MEDS: FERROUS SULFATE 325 MG TABEC PO SCH ×2 (09:12→17:00)
[2019-09-07] MEDS: MULTIVITAMIN/MINERALS 1 TAB PO SCH (09:12)
--- NOTE | 2019-09-07 09:14 | NUR ---
AM MEDS ADMINISTERED, PT TOLERATED WELL. PT ATE 100% OF HER BREAKFAST.
[2019-09-07 12:00] VITALS: BP 158/98
[2019-09-07] MEDS: LACTULOSE 20 GM/30 ML UDC PO SCH ×2 (12:15→20:31)
--- NOTE | 2019-09-07 12:25 | NUR ---
PT EATING LUNCH, PT IS IN NO ACUTE DISTRESS. WILL CONTINUE TO MONITOR.
[2019-09-07 16:00] VITALS: BP 152/92
--- NOTE | 2019-09-07 16:17 | NUR ---
Radio Station Operator Note: I met with patient at bedside to conduct assessment. However, patient refused to provide me with information. She stated she does not need community resources nor needs director of social work assistance. She stated she is planning to go to her sister's home upon discharge upon discharged. I attempted to obtain information about her sister's contact information. However, patient stated she already provided someone with it and refused to tell me who she gave information to and refused to provide me with her sister's contact information.
--- NOTE | 2019-09-07 19:00 | NUR ---
PAGED DR ARCHIBALD ABOUT PT MAG 1.4. WAITING CALL BACL Addendum: 09/07/19 at 1915 by Debora Mondragon RN DR. CRISTELA HUGHES MAR SULFATE IV 4000 MG
--- NOTE | 2019-09-07 19:20 | NUR ---
PT ENDORSED TO RN TELEPHONE TRIAGE IN STABLE CONDITION
--- NOTE | 2019-09-07 19:21 | NUR ---
RECEIVED PT SLEEPING, EASILY AROUSABLE, AAOX3, FORGETFUL AT TIMES, ABLE TO MAKE NEEDS KNOWN, VITAL SIGNS SLIGHTLY ELEVATED BUT STABLE, DENIES CHEST PAIN BUT COMPLAINING OF LEG PAIN, WILL MEDICATE PRN, IVF INFUSING WELL, PLAN OF CARE DISCUSSED, SAFETY MEASURES IN PLACE, BED ALARM ON, CALL LIGHT WITHIN REACH.
[2019-09-07] MEDS ORDERED: MAG SULF 2000 MG/WATER PREMIX 50 ML IV SCH (19:45)
[2019-09-07] MEDS: GABAPENTIN 300 MG CAP PO SCH (20:31)
--- NOTE | 2019-09-07 21:28 | NUR ---
PT MEDICATED PRN WITH MORPHINE FOR LEG, PT VOMITED MUSHY FOOD MODERATE AMOUNT, ZOFRAN IVP GIVEN PRN, MONITORED CLOSELY.
[2019-09-08] VITALS: BP 150/93
--- NOTE | 2019-09-08 | NUR ---
PT SLEEPING, EASILY AROUSABLE, VITAL SIGNS TAKEN, BP SLIGHTLY ELEVATED, DENIES CHEST PAIN BUT COMPLAINING OF LEG PAIN, WILL MEDICATE WHEN DUE, IVF INFUSING WELL, BED ALARM ON FOR SAFETY, CONTINUE TO MONITOR CLOSELY.
[2019-09-08] MEDS: MORPHINE SULFATE 4 MG/ML SYR IVP PRN ×4 (01:16→19:20)
--- NOTE | 2019-09-08 01:20 | NUR ---
MEDICATED PRN FOR LEG PAIN WITH MORPHINE IVP, BED ALARM ON, IVF INFUSING WELL, MONITORED CLOSELY.
[2019-09-08] MEDS: LACTULOSE 20 GM/30 ML UDC PO SCH ×3 (05:20→21:00)
--- NOTE | 2019-09-08 05:30 | NUR ---
AM LABS DRAWN, DUE MEDS ADMINISTERED, BLOOD SUGAR CHECKED WITH 123 RESULT, MEDICATED PRN FOR LEG PAIN, MONITORED CLOSELY.
[2019-09-08] MEDS: BLOOD GLUCOSE MONITORING 1 DEV DEV FS SCH ×4 (06:45→21:03)
[2019-09-08 06:56] LABS: EOSINOPHILS # (AUTO) 0.1 K/uL (0-0.4); EOSINOPHILS % (AUTO) 2.2 % (0.0-4.0); HEMATOCRIT 34.1 % (36-48); HEMOGLOBIN 11.3 g/dL (12.0-16.0); MEAN CORPUSCULAR HEMOGLOBIN 28 pg (27-31); MEAN CORPUSCULAR HGB CONC 33 g/dL (33-37); MEAN CORPUSCULAR VOLUME 84.8 fL (80-94); MONOCYTES # (AUTO) 0.3 K/uL (0.8-1.0); MONOCYTES % (AUTO) 12.1 % (1.7-9.3); NEUTROPHILS # (AUTO) 1.4 K/uL (1.8-7.7); NEUTROPHILS % (AUTO) 49.7 % (42.2-75.2); PLATELET COUNT (AUTO) 174 K/uL (140-450); RED BLOOD CELL COUNT(AUTO) 4.02 MIL/uL (4.20-5.40); WHITE BLOOD COUNT (AUTO) 2.8 K/uL (4.8-10.8)
[2019-09-08 06:59] LABS: ALBUMIN 2.2 g/dL (3.4-5.0); ANION GAP 10.9 (8-16); CARBON DIOXIDE 24.8 mmol/L (21-32); CREATININE 0.5 mg/dL (0.6-1.3); POTASSIUM 3.7 mmol/L (3.5-5.1); TOTAL BILIRUBIN 0.8 mg/dL (0.0-1.0)
[2019-09-08 07:01] LABS: MAGNESIUM 1.6 mg/dL (1.8-2.4); PHOSPHORUS 3.3 mg/dL (2.5-4.9)
[2019-09-08 07:09] LABS: HEPATITIS A ANTIBODY IGM Negative (Negative); HEPATITIS B CORE AB TOTAL Negative (Negative); HEPATITIS B SURFACE ANTIBODY Non Reactive (.); HEPATITIS B SURFACE ANTIGEN Negative (Negative)
--- NOTE | 2019-09-08 07:15 | NUR ---
PT SLEEPING, EASILY AROUSABLE, NO SIGNS OF DISTRESS, REPORT GIVEN TO REJI STAPLES FOR CONTINUITY OF CARE.
--- NOTE | 2019-09-08 07:17 | NUR ---
RECEIVED BEDSIDE REPORT FROM ASSEMBLER WIRE GROUP NURSE FOR CONTINUITY OF CARE. PATIENT IS RESTING ON BED AT THIS TIME, AROUSABLE TO VOICE, PATIENT IS AAOX2, SPEAKS SENEGALESE. RESPIRATION EVEN AND UNLABORED ON RA. DENIED PAIN, DIZZINESS AND SOB. NO SIGNS OF DISTRESS NOTED. IV ON L HAND 24G, INTACT AND CLEAN, INFUSING PER MD ORDER. PATIENT IS CONTINENT AND ABLE TO AMBULATE WITH ASSIST DUE TO UNSTEADY GAIT. DISCUSSED PLAN OF CARE WITH PATIENT AND REINFORCEMENT NEEDED. SAFETY MEASURES IN PLACE. BED IN LOW POSITION AND CALL LIGHT WITHIN REACH. BED ALARM ACTIVATED. INSTRUCTED PATIENT TO USE THE CALL LIGHT FOR ANY ASSISTANCE AND PATIENT WAS AWARE.
[2019-09-08 08:00] VITALS: BP 148/96
[2019-09-08] MEDS: PIOGLITAZONE 15 MG TAB PO SCH (08:49)
[2019-09-08] MEDS: FERROUS SULFATE 325 MG TABEC PO SCH ×2 (08:49→18:13)
[2019-09-08] MEDS: LISINOPRIL 10 MG TAB PO SCH (08:50)
[2019-09-08] MEDS: MULTIVITAMIN/MINERALS 1 TAB PO SCH (08:50)
[2019-09-08] MEDS: glipiZIDE ER 5 MG TABER PO SCH (08:50)
[2019-09-08] MEDS: NACL 0.9% 1,000 ML IV SCH ×2 (08:56→20:57)
--- NOTE | 2019-09-08 08:56 | NUR ---
ADMINISTERED SCHEDULED MED PER MD ORDER, PATIENT TOLERATED WELL. PATIENT IS AAOX3, NAME, PLACE, AND DATE. MED EDUCATION PROVIDED TO PATIENT AND PATIENT VERBALIZED UNDERSTANDING. PATIENT COMPLAINED SHE HAS 6/10 PAIN ON HER LEGS BILATERALLY, SHE FEELS RESTLESS AND IRRITABLE. ADMINISTERED PRN PAIN MED NORCO PER MD ORDER, PATIENT TOLERATED WELL. MED EDUCATION PROVIDED TO PATIENT AND PATIENT VERBALIZED UNDERSTANDING. PATIENT IS RESTING ON BED AT THIS TIME. SAFETY MEASURES IN PLACE. BED IN LOW POSITION AND CALL LIGHT WITHIN REACH. INSTRUCTED PATIENT TO USE THE CALL LIGHT FOR ANY ASSISTANCE AND PATIENT WAS AWARE.
--- NOTE | 2019-09-08 09:50 | NUR ---
PATIENT IS RESTING ON BED AT THIS TIME. NO SIGNS OF DISTRESS NOTED. SAFETY MEASURES IN PLACE. BED IN LOW POSITION AND CALL LIGHT WITHIN REACH. INSTRUCTED PATIENT TO USE THE CALL LIGHT FOR ANY ASSISTANCE AND PATIENT WAS AWARE.
[2019-09-08] MEDS: INSULIN LISPRO SLIDING SCALE 100 UNITS/ML VIAL SUBQ PRN ×3 (12:38→21:10)
--- NOTE | 2019-09-08 12:38 | NUR ---
PATIENT COMPLAINED SHE HS 10/10 PAIN ON HER LEGS BILATERALLY. SHE DESCRIBES IT SHARP PAIN, STABBING AND TIGHTNESS. ADMINISTERED PRN PAIN MED, MED EDUCATION PROVIDED TO PATIENT AND PATIENT VERBALIZED UNDERSTANDING. PATIENT IS AWAKE AND HAVING LUNCH AT THIS TIME. NO SIGNS OF DISTRESS NOTED. SAFETY MEASURES IN PLACE. BED IN LOW POSITION AND CALL LIGHT WITHIN REACH. INSTRUCTED PATIENT TO USE THE CALL LIGHT FOR ANY ASSISTANCE AND PATIENT WAS AWARE.
--- NOTE | 2019-09-08 13:11 | NUR ---
ADMINISTERED SCHEDULED MED PER MD ORDER, PATIENT TOLERATED WELL. MED EDUCATION PROVIDED TO PATIENT AND PATIENT VERBALIZED UNDERSTANDING. PATIENT IS EATING HER LUNCH ON BED AT THIS TIME. SAFETY MEASURES IN PLACE. BED IN LOW POSITION AND CALL LIGHT WITHIN REACH. BED ALARM ACTIVATED. INSTRUCTED PATIENT TO USE THE CALL LIGHT FOR ANY ASSISTANCE AND PATIENT WAS AWARE.
[2019-09-08] MEDS ORDERED: MAG SULF 2000 MG/WATER PREMIX 50 ML IV ONE (14:05)
[2019-09-08] MEDS ORDERED: RIFAXIMIN 550 MG TAB PO SCH ×2 (14:05→14:24)
--- NOTE | 2019-09-08 15:07 | NUR ---
ADMINISTERED MEDS PER MD ORDER, PATIENT TOLERATED WELL. MEDS EDUCATION PROVIDED TO PATIENT AND PATIENT SAID OK. PATIENT IS RESTING ON BED AT THIS TIME. NO SIGNS OF DISTRESS NOTED. SAFETY MEASURES IN PLACE. BED IN LOW POSITION AND CALL LIGHT WITHIN REACH. BED ALARM ACTIVATED. INSTRUCTED PATIENT TO USE THE CALL LIGHT FOR ANY ASSISTANCE AND PATIENT WAS AWARE.
--- NOTE | 2019-09-08 15:11 | NUR ---
CONTACTED PATIENT'S PCP DR MARYCARMEN LUNA'S OFFICE AT [phone], ABLE TO SPEAK TO SHARA FOR POST DISCHARGE APPOINTMENT. SHE PROVIDED ME WITH SEP 15, 2019 AT 0930 AM. COPY OF APPOINTMENT PROVIDED TO THE PATIENT. Addendum: 09/12/19 at 1058 by Minerva Clayton CM CONTACTED PATIENT'S NUMBER AT [phone], NO ANSWER. NO VOICEMAIL. CONTACTED PATIENT'S SISTER IN LAW, BRENDAN YU AT [phone], NO ANSWER. LEFT DETAILED MESSAGE REGARDING APPOINTMENT.
[2019-09-08 16:00] VITALS: BP 126/90
--- NOTE | 2019-09-08 16:20 | NUR ---
ADMINISTERED MEDS PER MD ORDER, PATIENT TOLERATED WELL. MED EDUCATION PROVIDED TO PATIENT AND PATIENT VERBALIZED UNDERSTANDING. PATIENT IS RESTING ON BED AT THIS TIME. NO SIGNS OF DISTRESS NOTED. SAFETY MEASURES IN PLACE. BED IN LOW POSITION AND CALL LIGHT WITHIN REACH. BED ALARM ACTIVATED. INSTRUCTED PATIENT TO USE THE CALL LIGHT FOR ANY ASSISTANCE AND PATIENT WAS AWARE.
--- NOTE | 2019-09-08 19:20 | NUR ---
PATIENT COMPLAINED SHE HS 10/10 PAIN ON HER LEGS BILATERALLY. SHE DESCRIBES IT SHARP PAIN, STABBING AND TIGHTNESS. ADMINISTERED PRN PAIN MED, MED EDUCATION PROVIDED TO PATIENT AND PATIENT VERBALIZED UNDERSTANDING. PATIENT IS AWAKE AND RESTING ON BED AT THIS TIME. NO SIGNS OF DISTRESS NOTED. SAFETY MEASURES IN PLACE. BED IN LOW POSITION AND CALL LIGHT WITHIN REACH. INSTRUCTED PATIENT TO USE THE CALL LIGHT FOR ANY ASSISTANCE AND PATIENT WAS AWARE. WILL ENDORSED PAIN REASSESSMENT TO ON COMING SHIFT NURSE.
--- NOTE | 2019-09-08 19:26 | NUR ---
PT AWAKE, ALERT, IN NAD ON ROOM AIR. WILL CONTINUE TO MONITOR.
--- NOTE | 2019-09-08 19:29 | NUR ---
ENDORSED PATIENT AT BEDSIDE TO SLAT TWISTER NURSE FOR CONTINUITY OF CARE. PATIENT IS IN STABLE CONDITION.
[2019-09-08 20:00] VITALS: BP 143/96
--- NOTE | 2019-09-08 20:00 | NUR ---
ASSUMED CARE. RECEIVED ASLEEP,AROUSABLE,ORIENTED,VERBALLY RESPONSIVE. AFEBRILE, NOT IN ACUTE DITRESS. NO PAIN OR DISCOMFORT NOTED. PAIN MEDICATION GIVEN BY AM SHIFT RN AT 1920. IV LINE TO THE LEFT SHOULDER OCCLUDED. WILL ESTABLISH A NEW IV LINE. VS STABLE, WILL CONTINUE TO MONITOR. NEEDS ATTENDED.
[2019-09-08] MEDS: GABAPENTIN 300 MG CAP PO SCH (21:01)
[2019-09-08] MEDS: RIFAXIMIN 550 MG TAB PO SCH (21:01)
--- NOTE | 2019-09-08 21:10 | NUR ---
DUE MEDICATIONS GIVEN SCHEDULED. FINGERSTICK BLOOD SUGAR GCJOA=485. 2 UNITS OF HUMALOG SQ GIVEN PER SLIDING SCALE.
--- NOTE | 2019-09-08 22:20 | NUR ---
GAUGE 20 IV LINE ESTABLISHED TO THE RIGHT HAND. IV FLUID NS @ 75 ML/HR RESTARTED.
[2019-09-09] VITALS: BP 152/101
--- NOTE | 2019-09-09 | NUR ---
ASLEEP, NOT IN ANY KIND OF DISTRESS. NO PAIN OR DISCOMFORT NOTED. SIDE RAILS UP,CALL LIGHT WITHIN REACH. KEPT WARM AND COMFORTABLE. VS REMAIN STABLE. WILL CONTINUE TO MONITOR.
[2019-09-09] MEDS: MORPHINE SULFATE 4 MG/ML SYR IVP PRN ×2 (01:24→06:48)
--- NOTE | 2019-09-09 01:24 | NUR ---
COMPLAINED OF LEG PAINS. MORPHINE 4 MG IVP GIVEN.
--- NOTE | 2019-09-09 04:00 | NUR ---
ASLEEP, NOT IN ANY KIND OF DISTRESS. NO PAIN OR DISCOMFORT NOTED AT THIS TIME. NO SIGNIFICANT CHANGE IN CONDITION.
[2019-09-09] MEDS: LACTULOSE 20 GM/30 ML UDC PO SCH ×2 (05:01→12:14)
[2019-09-09] MEDS: BLOOD GLUCOSE MONITORING 1 DEV DEV FS SCH ×2 (06:13→11:36)
--- NOTE | 2019-09-09 06:13 | NUR ---
FINGERSTICK BLOOD SUGAR CHECK=93. NO INSULIN COVERAGE NEEDED.
--- NOTE | 2019-09-09 06:48 | NUR ---
COMPLAINED OF BILATERAL LEG PAIN (10/10). MORPHINE 4 MG IVP GIVEN ORDERED.
--- NOTE | 2019-09-09 07:20 | NUR ---
ENDORSED CARE TO ISHAN RN STABLE.
--- NOTE | 2019-09-09 07:22 | NUR ---
RECEIVED REPORT FROM YOU[employer] PASTOR NURSE. PATIENT IS IN BED, ALERT, ORIENTED X4. RESPIRATION EVEN AND UNLABORED. CALL LIGHT WITHIN REACH.
[2019-09-09 08:00] VITALS: BP 173/108
[2019-09-09] MEDS: FERROUS SULFATE 325 MG TABEC PO SCH (09:20)
[2019-09-09] MEDS: MULTIVITAMIN/MINERALS 1 TAB PO SCH (09:20)
[2019-09-09] MEDS: PIOGLITAZONE 15 MG TAB PO SCH (09:20)
[2019-09-09] MEDS: RIFAXIMIN 550 MG TAB PO SCH (09:20)
[2019-09-09] MEDS: LISINOPRIL 10 MG TAB PO SCH (09:22)
[2019-09-09] MEDS: glipiZIDE ER 5 MG TABER PO SCH (09:22)
--- NOTE | 2019-09-09 09:26 | NUR ---
PATIENT IS IN BED, RESTING QUIETLY. RESPIRATION EVEN AND UNLABORED. ABLE TO WAKE, MEDICATIONS GIVEN ORDERED. TOLERATED WELL. DENIES ANY PAIN OR DISCOMFORT AT THIS TIME.
[2019-09-09] MEDS: NACL 0.9% 1,000 ML IV SCH (10:52)
--- NOTE | 2019-09-09 10:52 | NUR ---
IV TO RIGHT HAND INTACT AND PATENT. NS IVF INFUSING AT 75ML/HR. TOLERATING WELL. PATIENT AMBULATED TO THE RESTROOM AND WITH PT.
[2019-09-09 11:00] VITALS: BP 167/109
--- NOTE | 2019-09-09 11:14 | NUR ---
PATIENT REFUSED MORNING LABS X2. CALLED LAB NOW PATIENT IS WILLING TO HAVE HER LAB DRAWN. BP IS ELEVATED IN THE AM, REPEAT AFTER LISINOPRIL 10MG BP IS STILL ELEVATED 167/109. NOTIFIED DR. ARCHIBALD RECEIVED ORDER TO GIVE LISINOPRIL 10MG NOW AND START LISINOPRIL 20MG PO DAILY TOMORROW.
[2019-09-09 11:30] LABS: BASOPHILS % (AUTO) 0.8 % (0.0-2.0); EOSINOPHILS % (AUTO) 1.8 % (0.0-4.0); HEMATOCRIT 36.1 % (36-48); LYMPHOCYTES # (AUTO) 0.8 K/uL (2.5-16.5); LYMPHOCYTES % (AUTO) 36.4 % (20.5-51.1); MEAN CORPUSCULAR HEMOGLOBIN 28 pg (27-31); MEAN CORPUSCULAR HGB CONC 33 g/dL (33-37); MONOCYTES # (AUTO) 0.3 K/uL (0.8-1.0); MONOCYTES % (AUTO) 14.4 % (1.7-9.3); NEUTROPHILS # (AUTO) 1.1 K/uL (1.8-7.7); NEUTROPHILS % (AUTO) 46.6 % (42.2-75.2); PLATELET COUNT (AUTO) 190 K/uL (140-450); RED BLOOD CELL COUNT(AUTO) 4.29 MIL/uL (4.20-5.40); RED CELL DISTRIBUTION WIDTH 15.6 % (11.6-13.7); WHITE BLOOD COUNT (AUTO) 2.3 K/uL (4.8-10.8)
[2019-09-09 11:46] LABS: ALBUMIN 2.3 g/dL (3.4-5.0); ANION GAP 9.2 (8-16); CARBON DIOXIDE 28.8 mmol/L (21-32); CREATININE 0.7 mg/dL (0.6-1.3); TOTAL BILIRUBIN 0.8 mg/dL (0.0-1.0)
[2019-09-09 11:48] LABS: MAGNESIUM 1.5 mg/dL (1.8-2.4)
[2019-09-09] MEDS: INSULIN LISPRO SLIDING SCALE 100 UNITS/ML VIAL SUBQ PRN (11:53)
--- NOTE | 2019-09-09 11:56 | NUR ---
MEDICATION GIVEN ORDERED. INSULIN COVERAGE HUMALOG 4 UNITS GIVEN. PATIENT IS RESTING IN BED, DENIES ANY DISCOMFORT.
[2019-09-09] MEDS ORDERED: LISINOPRIL 10 MG TAB PO SCH (12:00)
--- NOTE | 2019-09-09 12:16 | NUR ---
DR. ARCHIBALD AT BEDSIDE.
[2019-09-09] MEDS ORDERED: AMOX500C25 PO (12:21)
[2019-09-09] MEDS ORDERED: LACT10SO1 PO (12:21)
[2019-09-09] MEDS ORDERED: LISI-420 PO (12:21)
--- NOTE | 2019-09-09 12:51 | NUR ---
09/09/19 RD INITIAL ASSESSMENT COMPLETED PLEASE REFER TO NUTRITION ASSESSMENT UNDER CARE ACTIVITY FOR ESTIMATED NUTRITIONAL NEEDS. 1. RECOMMEND A HEPATIC AND CCHO 60GM DIET TOLERATED 2. RD PROVIDED NUTRITION EDUCATION FOR CIRRHOSIS AND SOBRIETY. PT ACCEPTED 3. RD TO FOLLOW-UP 3-5 DAYS, MODERATE RISK ROCIO HIDALGO RD
--- NOTE | 2019-09-09 13:04 | NUR ---
Call place to Debora Gómez, per patient request, I leave message that patient is for discharged.
--- NOTE | 2019-09-09 14:15 | NUR ---
PATIENT IS DISCHARGED VIA PRIVATE VEHICLE GOING HOME WITH HER SISTER DAVIS. DISCHARGED INSTRUCTIONS GIVEN, PRESCRIPTIONS GIVEN, ALL BELONGINGS GIVEN. IV D/C, CATHETER TIP INTACT. BLEEDING CONTROLLED. ESCORTED TO FRONT LOBBY IN W/C.
--- NOTE | 2019-09-10 05:47 | NUR ---
Late entry. Confirmed with RN that 0.9 NS IV 1000ml completed at 1429. Zosyn IVPB completed at 1400
[2019-09-10] MEDS ORDERED: LISINOPRIL 20 MG TAB PO SCH (09:00)
== END 2019-09-09 14:35 | disposition home or self-care (01) | DRG 280 ==
LOC: MED 11:01 → MTU 15:37
PROVIDERS: ADMIT Internal Medicine Pulmonary Disease; ATTEND Internal Medicine Pulmonary Disease
DX: K70.30 Alcoholic cirrhosis of liver without ascites (principal); E43 Unspecified severe protein-calorie malnutrition; G92 Toxic encephalopathy; R65.10 Systemic inflammatory response syndrome (SIRS) of non-infectious origin without acute organ dysfunction; E72.4 Disorders of ornithine metabolism; E87.1 Hypo-osmolality and hyponatremia; E11.65 Type 2 diabetes mellitus with hyperglycemia; E83.42 Hypomagnesemia; E86.9 Volume depletion, unspecified; N39.0 Urinary tract infection, site not specified; F10.10 Alcohol abuse, uncomplicated; F17.200 Nicotine dependence, unspecified, uncomplicated; I10 Essential (primary) hypertension; Y90.9 Presence of alcohol in blood, level not specified; F19.10 Other psychoactive substance abuse, uncomplicated; Z91.19 Patient's noncompliance with other medical treatment and regimen; B95.5 Unspecified streptococcus as the cause of diseases classified elsewhere; Z68.29 Body mass index [BMI] 29.0-29.9, adult; E44.0 Moderate protein-calorie malnutrition
CPT/HCPCS: 36415; 71045; 76700; 80053; 80305; 81001; 82140; 82948; 83036; 83605; 83690; 83735; 83880; 84100; 84484; 85025; 86704; 86706; 86708; 86709; 86803; 87040; 87081; 87086; 87340; 87804; 93005; 96365; 96372; 96375; 96376; 97116; 97161-GP; 97530; 99291; G0482; J0696; J1815; J1885; J2270; J2405; J2543; J3475; J7030; J7060; Q0092

== ENCOUNTER 2019-11-19 14:36 | Inpatient (IN) | payer OTHER ==
[~2019-11-19] VITALS: Ht 165.1 cm; Wt 58.1 kg
[2019-11-19] MEDS: BLOOD GLUCOSE MONITORING 1 DEV DEV FS SCH (02:55)
[~2019-11-19 14:36] MED LIST changes: +AMOX500C25 PO; -CIPR500T4 PO; +LACT10SO1 PO; +LISI-420 PO; -LISI10TA11 PO; -SULF1TAB12 PO
--- NOTE | 2019-11-19 14:36 | NUR ---
Patient BIBA ALS, transferred to bed 10. RN evaluating patient at bedside.
[2019-11-19 14:41] VITALS: BP 159/107
--- NOTE | 2019-11-19 14:55 | NUR ---
C/O WEAKNESS AND GENERALIZED BODY ACHES X2 DAYS. FSBS IS 435. PT IS NON COMPLIANT WITH DM MEDICATION. PT DENIES HEADACHE/N/V. PT DENIES INJURY. BED IN LOW POSITION, SIDE RAIL UP X1.
[2019-11-19] MEDS ORDERED: INSULIN REGULAR, HUMAN 100 UNIT/ML VIAL IVP ONE ×2 (15:50→18:10)
[2019-11-19] MEDS ORDERED: NACL 0.9% 2,000 ML IV ONE (15:50)
[2019-11-19 16:22] LABS: BASOPHILS % (AUTO) 0.9 % (0.0-2.0); EOSINOPHILS # (AUTO) 0.1 K/uL (0-0.4); EOSINOPHILS % (AUTO) 1.4 % (0.0-4.0); HEMATOCRIT 35.7 % (36-48); HEMOGLOBIN 11.3 g/dL (12.0-16.0); LYMPHOCYTES # (AUTO) 1.2 K/uL (2.5-16.5); LYMPHOCYTES % (AUTO) 27.4 % (20.5-51.1); MEAN CORPUSCULAR HEMOGLOBIN 27 pg (27-31); MEAN CORPUSCULAR HGB CONC 32 g/dL (33-37); MONOCYTES # (AUTO) 0.4 K/uL (0.8-1.0); MONOCYTES % (AUTO) 9.9 % (1.7-9.3); NEUTROPHILS # (AUTO) 2.7 K/uL (1.8-7.7); NEUTROPHILS % (AUTO) 60.4 % (42.2-75.2); PLATELET COUNT (AUTO) 224 K/uL (140-450); RED BLOOD CELL COUNT(AUTO) 4.25 MIL/uL (4.20-5.40); RED CELL DISTRIBUTION WIDTH 17.9 % (11.6-13.7); WHITE BLOOD COUNT (AUTO) 4.5 K/uL (4.8-10.8)
--- NOTE | 2019-11-19 16:25 | NUR ---
Dr. Webster is evaluating the patient at bedside.
--- NOTE | 2019-11-19 16:27 | NUR ---
ERMD AT BEDSIDE EVALUATING PT
[2019-11-19 16:28] LABS: ACETONE, SERUM NEGATIVE (NEGATIVE)
[2019-11-19 16:45] LABS: ALBUMIN 2.1 g/dL (3.4-5.0); ANION GAP 15.2 (8-16); ASPARTATE AMINOTRANSFERASE 149 U/L (15-37); CARBON DIOXIDE 23.8 mmol/L (21-32); CHLORIDE 88 mmol/L (98-107); CREATININE 1.4 mg/dL (0.6-1.3); GFR ARICAN-AMERICAN 53 mL/min (>90); LIPASE 195 U/L (73-393); SODIUM SERUM 123 mmol/L (136-145); TOTAL BILIRUBIN 2.1 mg/dL (0.0-1.0); UREA NITROGEN, BLOOD 15 mg/dL (7-18)
[2019-11-19 16:48] LABS: GLUCOSE 559 mg/dL (74-106)
[2019-11-19] MEDS ORDERED: PIPERACILLIN/TAZOBACTAM 3.375 GM in DEXT 5% MINI-BAG PLUS 50 ML IV ONE (16:50)
[2019-11-19] MEDS ORDERED: VANCOMYCIN 1,000 MG in DEXTROSE 5% 250 ML IV ONE (16:50)
[2019-11-19] MEDS ORDERED: MORPHINE SULFATE 4 MG/ML SYR IVP ONE (17:40)
[2019-11-19] MEDS ORDERED: PIPERACILLIN/TAZOBACTAM 3.375 GM VIAL IV ONE (17:41)
[2019-11-19 17:46] LABS: APPEARANCE,URINE CLEAR (CLEAR); BILIRUBIN,URINE 2+ (NEGATIVE); BLOOD, URINE TRACE-I (NEGATIVE); COLOR,URINE YELLOW (YELLOW); LEUKOCYTE ESTERASE ,URINE NEGATIVE (NEGATIVE); NITRITE, URINE NEGATIVE (NEGATIVE); UGLUCOSE 3+ (NEGATIVE)
--- NOTE | 2019-11-19 18:04 | NUR ---
SITTING UP IN [facility]--EATING HER DINNER
[2019-11-19 18:09] LABS: RBC,URINE 0-5 /HPF (0-5); WBC,URINE 0-5 /HPF (0-5)
[2019-11-19 18:10] LABS: URINE AMORPHOUS URATE 1+ /HPF (None Seen)
[2019-11-19] MEDS ORDERED: NACL 0.9% 1,000 ML IV SCH (18:10)
[2019-11-19] MEDS ORDERED: MORPHINE SULFATE 2 MG/ML SYR IVP PRN (18:10)
[2019-11-19] MEDS ORDERED: LORazepam 2 MG/ML VIAL IVP PRN (18:10)
[2019-11-19] MEDS ORDERED: ONDANSETRON 4 MG/2 ML VIAL IVP PRN (18:10)
[2019-11-19] MEDS ORDERED: DEXTROSE 50% 50 ML SYR IVP PRN (18:10)
[2019-11-19] MEDS ORDERED: VANCOMYCIN 1,000 MG VIAL ONE (18:22)
--- NOTE | 2019-11-19 19:10 | NUR ---
Patient will be admitted to care of DR. OLMEDO. Admited to TELEMETRY. Will go to room 106A. Belongings list completed. Report to REJI RAYO.
--- NOTE | 2019-11-19 19:10 | NUR ---
RECEIVED PT FROM ED VIA [facility]. PT AWAKE ALERT ORIENTED X 4; AMBULATORY. PT WAS GIVEN PAIN MEDS FOR ABD PAIN PER ENDORSEMENT. WITH LEFT AC G 18 PATENT AND INTACT W/ VANCOMYCIN INFUSING WELL. PT WITH SIS IN LAW BRENDAN AT BEDSIDE. INTERVIEWED PT AND SIS IN LAW. PLACED PT ON BED; CALL LIGHT WITHIN REACH.
--- NOTE | 2019-11-19 20:00 | NUR ---
CALLED DR. PENALOZA COLLIS [facility] NURSE AND INFORMED HIM THAT PT IS IN PAIN 10/10 CAN WE ADMINISTER PAIN MEDS. SAID ITS FINE AND WAIT FOR THE HIDA SCAN AND CT SCAN OD THE ABDOMEN, W/O CONTRAST TO BE DONE
[2019-11-19] MEDS ORDERED: MORPHINE SULFATE 4 MG/ML SYR IVP PRN (22:00)
[2019-11-19] MEDS: INSULIN LISPRO SLIDING SCALE 100 UNITS/ML VIAL SUBQ PRN (22:57)
--- NOTE | 2019-11-19 22:57 | NUR ---
PT BS IS 255- GIVEN 6 UNITS.
[2019-11-19] MEDS: NACL 0.9% 1,000 ML IV SCH (23:01)
--- NOTE | 2019-11-20 | NUR ---
MIDNIGHT BS IS 273- NO INSULIN GIVEN PATIENT IS NPO, PT FOR HIDA SCAN
--- NOTE | 2019-11-20 00:01 | NUR ---
VITAL SIGNS 187/112; 98%; 95 HR; 97.8 TEMP; 10/10 PAIN.
[2019-11-20 00:14] LABS: BARBITURATE, URINE NEG. ng/ml (NEG <=200); BENZODIAZEPINE, URINE NEG. ng/mL (NEG <=200); CANNABINOID, URINE NEG. ng/mL (NEG <=50); COCAINE, URINE NEG. ng/mL (NEG <=300); OPIATE, URINE NEG. ng/mL (NEG <=2000); PHENCYCLIDINE SCREEN,URINE NEG. ng/mL (NEG <=25)
[2019-11-20] MEDS: BLOOD GLUCOSE MONITORING 1 DEV DEV FS SCH ×6 (00:20→20:45)
[2019-11-20] MEDS ORDERED: PIPERACILLIN/TAZOBACTAM 3.375 GM VIAL IV ONE ×2 (00:25→05:21)
[2019-11-20] MEDS: PIPERACILLIN/TAZOBACTAM 3.375 GM in DEXTROSE 5% 50 ML IV SCH ×4 (00:28→17:10)
--- NOTE | 2019-11-20 00:30 | NUR ---
SEED ANALYST TOOK PT FOR HIDA SCAN.
--- NOTE | 2019-11-20 01:47 | NUR ---
DR. OLMEDO CALLED BACK, INFORMED HIM THAT PT HAS HIGH BP, PAT HAS 10/10 PAIN. SAID THAT ITS FINE. I INFORMED HIM THAT AT THE [facility] I WILL BE GIVING THE MORPHINE. . I ALSO ASKED PER PT NOT EATING FOR 2 DAYS NOW, IF PT CAN EAT, SAID TO ASK THE SURGEON, DR. LUGO. WILL CONTINUE TO MONITOR
[2019-11-20] MEDS ORDERED: MORPHINE SULFATE 2 MG/ML SYR IVP SCH (02:00)
--- NOTE | 2019-11-20 02:55 | NUR ---
CHECKED AGAIN BP OF PT AFTER ADMINSTERING PAIN MEDS;TEMP 98.0; 155/93; ; 18; 98% 0/10 PAIN
--- NOTE | 2019-11-20 04:06 | NUR ---
PT MK=[id number]; NOT GIVEN INSULIN PT IS STILL NPO
[2019-11-20] MEDS: NACL 0.9% 1,000 ML IV SCH ×2 (04:07→12:13)
[2019-11-20] MEDS: MORPHINE SULFATE 2 MG/ML SYR IVP PRN ×3 (05:30→20:56)
--- NOTE | 2019-11-20 05:45 | NUR ---
TEXTED DR. LUGO RE: NEGATIVE HIDA SCAN AND REQUEST FOR PT TO EAT; AWAITING REPLY FROM
--- NOTE | 2019-11-20 06:00 | NUR ---
PT AWAKE ALERT ORIENTED X 4, PT AWAITING DIET CHANGE FROM DR. LUGO. NO REPLY YET. ENDORSED TO NEXT SHIFT NURSE
[2019-11-20 06:07] LABS: HEPATITIS A ANTIBODY IGM Negative (Negative); HEPATITIS B CORE AB TOTAL Negative (Negative); HEPATITIS B SURFACE ANTIBODY Non Reactive (.); HEPATITIS B SURFACE ANTIGEN Negative (Negative)
[2019-11-20 06:31] LABS: BASOPHILS # (AUTO) 0.1 K/uL (0.00-0.22); BASOPHILS % (AUTO) 1.2 % (0.0-2.0); EOSINOPHILS # (AUTO) 0.1 K/uL (0-0.4); EOSINOPHILS % (AUTO) 3.6 % (0.0-4.0); HEMATOCRIT 30.5 % (36-48); HEMOGLOBIN 9.9 g/dL (12.0-16.0); LYMPHOCYTES # (AUTO) 1.5 K/uL (2.5-16.5); LYMPHOCYTES % (AUTO) 37.1 % (20.5-51.1); MEAN CORPUSCULAR HEMOGLOBIN 27 pg (27-31); MEAN CORPUSCULAR HGB CONC 32 g/dL (33-37); MEAN CORPUSCULAR VOLUME 82.3 fL (80-94); MONOCYTES # (AUTO) 0.4 K/uL (0.8-1.0); MONOCYTES % (AUTO) 10.8 % (1.7-9.3); NEUTROPHILS % (AUTO) 47.3 % (42.2-75.2); PLATELET COUNT (AUTO) 206 K/uL (140-450); RED BLOOD CELL COUNT(AUTO) 3.71 MIL/uL (4.20-5.40); RED CELL DISTRIBUTION WIDTH 17.6 % (11.6-13.7); WHITE BLOOD COUNT (AUTO) 4.2 K/uL (4.8-10.8)
[2019-11-20 06:52] VITALS: BP 155/93
[2019-11-20 07:03] LABS: ALBUMIN 1.7 g/dL (3.4-5.0); ANION GAP 8.5 (8-16); CARBON DIOXIDE 28.1 mmol/L (21-32); MAGNESIUM 1.2 mg/dL (1.8-2.4); POTASSIUM 3.6 mmol/L (3.5-5.1); TOTAL BILIRUBIN 1.6 mg/dL (0.0-1.0)
--- NOTE | 2019-11-20 07:20 | NUR ---
Received report from pm nurse Dorothy. Pt asleep, opens eyes to auditory stimuli, aaox4, no signs of distress. Left AC IV 18G intact & asymptomatic with ongoing NS @ 100ml/h. Call light within reach.
--- NOTE | 2019-11-20 08:54 | NUR ---
PT HAS BEEN SCREENED AND CATEGORIZED MODERATE NUTRITION RISK. PT WILL BE SEEN WITHIN 3-5 DAYS OF ADMISSION. 11/22/19-11/24/[address]
--- NOTE | 2019-11-20 09:00 | NUR ---
Notified Dr Sarabia via phone re: pt's Mg level 1.2. Order received, noted, & carried out. Dr Sarabia also informed of pt's negative HIDA scan & pt request to resume po diet. Per Dr Sarabia, f/u with Dr Hill if ok. Will page Dr Hill.
[2019-11-20] MEDS ORDERED: MAG SULF 2000 MG/WATER PREMIX 100 ML IV SCH (09:05)
[2019-11-20] MEDS: ENOXAPARIN 30 MG/0.3 ML SYR SUBQ SCH (09:22)
--- NOTE | 2019-11-20 11:05 | NUR ---
Pt vomited about 100ml after eating late breakfast, emesis appears to be ingested food. Pt states "I didnt eat for 5 days and now I think I ate too fast." Zofran given. HOB kept upright. Pt shows no signs of aspiration, no signs of distress. Call light within reach.
[2019-11-20 12:00] VITALS: BP 156/91
[2019-11-20] MEDS: GABAPENTIN 100 MG CAP PO SCH ×2 (12:08→17:10)
[2019-11-20] MEDS: chlordiazePOXIDE 25 MG CAP PO SCH ×3 (12:08→20:46)
[2019-11-20] MEDS: INSULIN LISPRO SLIDING SCALE 100 UNITS/ML VIAL SUBQ PRN ×3 (12:11→20:55)
--- NOTE | 2019-11-20 13:00 | NUR ---
Pt consumed 100% of lunch. No c/o nausea, no further episodes of vomiting. Pt states "I feel much better."
[2019-11-20 16:00] VITALS: BP 129/83
--- NOTE | 2019-11-20 17:00 | NUR ---
Pt sitting up in bed, watching TV. No c/o discomfort, no signs of distress. Denies any abd discomfort. Call light within reach.
--- NOTE | 2019-11-20 19:29 | NUR ---
Report given to pm nurse Bubba.
--- NOTE | 2019-11-20 19:32 | NUR ---
RECEIVED REPORT FROM DAYSVAFT NURSE. TELE PATIENT. RESTING IN BED, TALKING ON THE PHONE. ALERT, ORIENTED X4, ABLE TO MAKE NEEDS KNOWN. RESPIRATIONS EVEN, UNLABORED. SKIN WARM, DRY TO TOUCH. NO S/SX ACUTE DISTRESS. IV SITE PATENT/INTACT. ABDOMEN SOFT, NONTENDER. PLAN OF CARE DISCUSSED, VERBALIZED UNDERSTANDING. CALL LIGHT WITHIN REACH. WILL CONTINUE TO MONITOR.
[2019-11-20 20:00] VITALS: BP 141/96
--- NOTE | 2019-11-20 20:55 | NUR ---
BLOOD SUGAR WAS CHECKED RESULT 336. INSULIN COVERAGE GIVEN SUB Q. THEN PROVIDED WITH SOME SNACK . WILL CONTINUE TO MONITOR.
[2019-11-20] MEDS ORDERED: TEMAZEPAM 15 MG CAP PO PRN (21:00)
--- NOTE | 2019-11-20 22:00 | NUR ---
MADE ROUNDS. PT IS ASLEEP. NO S/S OF ANY DISCOMFORT NOTED.
[2019-11-21] VITALS: BP 128/84
--- NOTE | 2019-11-21 | NUR ---
PATIENT ASLEEP AND IN STABLE CONDITION. NO C/O PAIN. NO S/SX ACUTE DISTRESS. CALL LIGHT WITHIN REACH. WILL CONTINUE TO MONITOR.
[2019-11-21] MEDS: NACL 0.9% 1,000 ML IV SCH ×4 (00:07→23:07)
[2019-11-21] MEDS: PIPERACILLIN/TAZOBACTAM 3.375 GM in DEXTROSE 5% 50 ML IV SCH ×5 (00:25→23:08)
--- NOTE | 2019-11-21 02:10 | NUR ---
MADE ROUNDS. PATIENT IN STABLE CONDITION. NO S/SX ACUTE DISTRESS. CALL LIGHT WITHIN REACH. WILL CONTINUE TO MONITOR.
[2019-11-21 04:05] VITALS: BP 166/100
[2019-11-21] MEDS: MORPHINE SULFATE 2 MG/ML SYR IVP PRN ×4 (04:13→21:44)
--- NOTE | 2019-11-21 04:14 | NUR ---
PATIENT C/O ACHING PAIN 05/03. MEDICATED ORDERED. CALL LIGHT WITHIN REACH. WILL CONTINUE TO MONITOR.
--- NOTE | 2019-11-21 05:15 | NUR ---
REASSESSED PAIN LEVEL, PATIENT SAID 1/10, TOLERABLE LEVEL OF PAIN. NO S/SX ACUTE DISTRESS. CALL LIGHT WITHIN REACH. WILL CONTINUE TO MONITOR.
--- NOTE | 2019-11-21 05:52 | NUR ---
PATIENT STABLE. UNABLE TO OBTAIN A BLOOD GLUCOSE LEVEL THROUGH FINGERSTICK WITH GLUCOMETER. LAB VIANNEY BLOOD AND AWAITING RESULT.
[2019-11-21 06:12] LABS: ANION GAP 11.3 (8-16); CARBON DIOXIDE 24.7 mmol/L (21-32); TOTAL BILIRUBIN 1.7 mg/dL (0.0-1.0)
[2019-11-21] MEDS: BLOOD GLUCOSE MONITORING 1 DEV DEV FS SCH ×4 (06:15→20:35)
[2019-11-21] MEDS: INSULIN LISPRO SLIDING SCALE 100 UNITS/ML VIAL SUBQ PRN ×5 (06:30→20:56)
--- NOTE | 2019-11-21 06:37 | NUR ---
ABLE TO OBTAIN BLOOD GLUCOSE FINGERSTICK WITH GLUCOMETER OF 299 MG/DL. 6 UNITS OF HUMALOG COVERAGE WAS ADMINISTERED. PATIENT STABLE WITH NO C/O PAIN. NO S/SX ACUTE DISTRESS. CALL LIGHT WITHIN REACH. WILL CONTINUE TO MONITOR.
[2019-11-21 07:17] LABS: BASOPHILS % (AUTO) 1.4 % (0.0-2.0); EOSINOPHILS # (AUTO) 0.1 K/uL (0-0.4); EOSINOPHILS % (AUTO) 3.4 % (0.0-4.0); HEMATOCRIT 32.6 % (36-48); HEMOGLOBIN 10.7 g/dL (12.0-16.0); LYMPHOCYTES # (AUTO) 1.1 K/uL (2.5-16.5); LYMPHOCYTES % (AUTO) 40.1 % (20.5-51.1); MEAN CORPUSCULAR HEMOGLOBIN 27 pg (27-31); MEAN CORPUSCULAR HGB CONC 33 g/dL (33-37); MEAN CORPUSCULAR VOLUME 83.3 fL (80-94); MONOCYTES # (AUTO) 0.3 K/uL (0.8-1.0); MONOCYTES % (AUTO) 11.2 % (1.7-9.3); NEUTROPHILS # (AUTO) 1.2 K/uL (1.8-7.7); NEUTROPHILS % (AUTO) 43.9 % (42.2-75.2); PLATELET COUNT (AUTO) 199 K/uL (140-450); RED BLOOD CELL COUNT(AUTO) 3.92 MIL/uL (4.20-5.40); RED CELL DISTRIBUTION WIDTH 17.9 % (11.6-13.7); WHITE BLOOD COUNT (AUTO) 2.8 K/uL (4.8-10.8)
--- NOTE | 2019-11-21 07:24 | NUR ---
ENDORSED PT IN STABLE CONDITION TO AM NURSE.
--- NOTE | 2019-11-21 07:25 | NUR ---
Received report from PM nurse, Lis. Pt is awake and eating her snack. NS is running at 100 ml/hr on her left AC. Bed at lowest position and call light within reach.
[2019-11-21 08:00] VITALS: BP 149/105
[2019-11-21] MEDS: ENOXAPARIN 30 MG/0.3 ML SYR SUBQ SCH (08:48)
[2019-11-21] MEDS: GABAPENTIN 100 MG CAP PO SCH ×3 (08:49→17:38)
[2019-11-21] MEDS: chlordiazePOXIDE 25 MG CAP PO SCH ×4 (08:49→20:27)
--- NOTE | 2019-11-21 08:50 | NUR ---
Pt complained of 5/10 sharp, intermittent abdominal pain. Administered PRN morphine 2 mg/ml IV push for pain.
[2019-11-21] MEDS ORDERED: INSULIN LANTUS 100 UNITS/ML 10 ML VIAL SUBQ SCH (10:42)
[2019-11-21 12:00] VITALS: BP 158/110
--- NOTE | 2019-11-21 12:30 | NUR ---
Pt received lunch, but vomited 200 ml of ingested food. She didn't feel nauseous prior. Denies feeling nauseous after vomiting and is asking for more food. Gave half a sandwich and educated about eating more slowly to avoid vomiting. Provided personal hygiene care. Pt watching television, bed at lowest position, call light within reach.
--- NOTE | 2019-11-21 14:15 | NUR ---
CM TRIED TO CONDUCT SCREEN HOWEVER, PATIENT IS SLEEPING. WILL FOLLOW UP.
--- NOTE | 2019-11-21 15:00 | NUR ---
Pt's fiance at bedside. Pt asked for more food, but educated her on following her diet to avoid hyperglycemia. Pt is pleasant, bed at lowest position, call light within reach.
[2019-11-21 16:00] VITALS: BP 167/114
--- NOTE | 2019-11-21 18:20 | NUR ---
Pt vomited 100 ml of ingested food. Had to refuse pt's request for more food, considering her hepatic diet and hyperglycemia. Gave comfort measures and distracted pt with the television and rest. Call light within reach and bed at lowest position.
--- NOTE | 2019-11-21 19:15 | NUR ---
RECEIVED BEDSIDE REPORT FROM DAY SHIFT NURSE. PATIENT IS ASLEEP AROUSABLE BY NAME AND TOUCH. RESPIRATION EVEN UNLABORED ON ROOM AIR. NO DISTRESS NOTED. SKIN IS WARM AND DRY. IV PATENT AND INTACT. PLAN OF CARE WAS DISCUSSED. ALL SAFETY MEASURES IN PLACE. BED IS AT LOW POSITION. CALL LIGHT WITHIN REACH AND VERBALIZES ITS USE. WILL CONTINUE TO MONITOR.
[2019-11-21 20:00] VITALS: BP 145/108
--- NOTE | 2019-11-21 20:15 | NUR ---
INITIAL ASSESSMENT DONE. VITALS WERE TAKEN. PATIENT IN STABLE CONDITION. WILL CONTINUE TO MONITOR.
--- NOTE | 2019-11-21 20:30 | NUR ---
ALL SCHEDULED MEDS GIVEN. WILL CONTINUE TO MONITOR.
[2019-11-21] MEDS ORDERED: MAGNESIUM OXIDE 400 MG TAB PO ONE (21:00)
--- NOTE | 2019-11-21 21:45 | NUR ---
PATIENT C/O PAIN 6/10, PAIN MEDS GIVEN PER ORDER. WILL CONTINUE TO MONITOR.
[2019-11-22] VITALS (7 sets, daily range): BP systolic 135–155; BP diastolic 60–99
--- NOTE | 2019-11-22 00:12 | NUR ---
MADE ROUNDS. PATIENT ASLEEP. NO S/SX ACUTE DISTRESS. CALL LIGHT WITHIN REACH. WILL CONTINUE TO MONITOR.
--- NOTE | 2019-11-22 02:11 | NUR ---
PATIENT ASLEEP AND IN STABLE CONDITION. NO S/SX ACUTE DISTRESS. CALL LIGHT WITHIN REACH. WILL CONTINUE TO MONITOR.
[2019-11-22] MEDS: MORPHINE SULFATE 2 MG/ML SYR IVP PRN ×4 (02:28→18:39)
--- NOTE | 2019-11-22 03:57 | NUR ---
VITALS TAKEN. PATIENT IN STABLE CONDITION. NO S/SX ACUTE DISTRESS. CALL LIGHT WITHIN REACH. WILL CONTINUE TO MONITOR.
--- NOTE | 2019-11-22 05:38 | NUR ---
REFUSED LAB DRAW X 3. RISKS AND BENEFITS EXPLAINED, PATIENT VERBALIZED UNDERSTANDING BUT CONTINUED TO REFUSE. WILL CONTINUE TO MONITOR.
[2019-11-22] MEDS: PIPERACILLIN/TAZOBACTAM 3.375 GM in DEXTROSE 5% 50 ML IV SCH ×3 (06:12→18:24)
[2019-11-22] MEDS: INSULIN LISPRO SLIDING SCALE 100 UNITS/ML VIAL SUBQ PRN ×3 (06:38→17:28)
[2019-11-22] MEDS: BLOOD GLUCOSE MONITORING 1 DEV DEV FS SCH ×3 (06:38→16:39)
--- NOTE | 2019-11-22 06:42 | NUR ---
PATIENT C/O ACHING ABDOMINAL PAIN 05/03. MEDICATED ORDERED. WILL CONTINUE TO MONITOR.
--- NOTE | 2019-11-22 07:08 | NUR ---
ENDORSED PATIENT TO AM SHIFT IN STABLE CONDITION.
--- NOTE | 2019-11-22 07:09 | NUR ---
RECEIVED PATIENT FROM DIRECT CHILL CASTING OPERATOR NURSE. PATIENT IS CURRENTLY SLEEPING AT THIS TIME. NO SIGNS OF DISTRESS NOTED. RESPIRATIONS EVEN AND UNLABORED, ON ROOM AIR. PATIENT IS ON TELE MONITORING. VISIBLE CHEST RISE NOTED. PATIENT ABDOMEN ROUND AND NONTENDER. SKIN INTACT. BOTH HANDS REDNESS AND SWOLLEN. IV ON THE L AC GAUGE 20 RUNNING NS AT 100M/HR. IV PATENT AND INTACT. BED IN LOW POSITION. CALL LIGHT IS WITHIN REACH. WILL CONTINUE TO MONITOR.
[2019-11-22] MEDS ORDERED: INSULIN LANTUS 100 UNITS/ML 10 ML VIAL SUBQ SCH (09:00)
[2019-11-22] MEDS: chlordiazePOXIDE 25 MG CAP PO SCH ×3 (09:23→17:26)
[2019-11-22] MEDS: GABAPENTIN 100 MG CAP PO SCH ×3 (09:24→17:26)
[2019-11-22] MEDS: ENOXAPARIN 30 MG/0.3 ML SYR SUBQ SCH (09:30)
--- NOTE | 2019-11-22 09:30 | NUR ---
GIVEN MORNING MEDICATIONS. PLATELET 199. LOVENOX GIVEN IN THE LEFT LOWER ABDOMEN, SUBQ. EXPLAINED TO PATIENT MEDICATIONS. PATIENT VERBALIZED UNDERSTANDING. WILL CONTINUE TO MONITOR.
--- NOTE | 2019-11-22 10:25 | NUR ---
PATIENT REQUESTED PUDDING. PATIENT IS DIABETIC AND INSISTING OF EATING SWEETS. EDUCATED PATIENT REGARDING DM. LAST BLOOD SUGAR CHECK 265.
[2019-11-22] MEDS ORDERED: METR250T2 PO (11:10)
--- NOTE | 2019-11-22 12:20 | NUR ---
VITAL SIGNS TAKEN. GLUCOSE CHECK 272. GIVEN 6 UNITS INSULIN SUBQ. GIVEN SOZYN VIA IVPB. EXPLAINED TO PATIENT INDICATIONS. PATIENT VERBALIZED UNDERSTANDING. WILL CONTINUE TO MONITOR
--- NOTE | 2019-11-22 13:14 | NUR ---
ADMINISTERED MEDICATIONS PO. GAVE MORPHINE VIA IVP FOR LEG PAIN 08/03. EXPLAINED TO PATIENT INDICATIONS. PATIENT VERBALIZED UNDERSTANDING. PATIENT IS EATING LUNCH AT THIS TIME. NO DISTRESS NOTED. RESPIRATIONS EVEN AND UNLABORED. WILL CONTINUE TO MONITOR.
--- NOTE | 2019-11-22 13:30 | NUR ---
PATIENT SIGNED DISCHARGE PAPER. PATIENT AWARE THAT SHE HAS PRECRIPTION PER MD ORDER. PATIENT VERBALIZED UNDERSTANDING. PATIENT WANTS SISTER IN LAW, MAYRA TO PICK HER UP. WILL CALL MAYRA
--- NOTE | 2019-11-22 14:31 | NUR ---
SPOKE TO MAYRA, PATIENT SISTER-IN LAW. SHE WILL BE PICKING UP PATIENT AT 1999 OR WHENEVER SHE'S DONE WITH WORK. CHARGE NURSE AND HOUSE SUP ARE AWARE.
--- NOTE | 2019-11-22 15:44 | NUR ---
PATIENT IS SLEEPING AT THIS TIME BUT AROUSABLE TO NAME. PATIENT DENIES PAIN. RESPIRATIONS EVEN AND UNLABORED, ON ROOM AIR. WILL CONTINUE TO MONITOR
--- NOTE | 2019-11-22 15:54 | NUR ---
PCP Appointment: DAVID contacted Nat from Dr. Amilcar Calvo's office [phone]. DAVID made hospital follow up appointment to be at 1500 on 11/29/2019 @ [address] [address]. DAVID left appointment slip in patient's chart to be given at discharge. No further needs identified.
[2019-11-22] MEDS: NACL 0.9% 1,000 ML IV SCH (16:07)
--- NOTE | 2019-11-22 18:28 | NUR ---
GIVEN SOZYN VIA IVPB. EXPLAINED TO PATIENT INDICATION. PATIENT VERBALIZED UNDERSTANDING. WILL CONTINUE TO MONITOR
--- NOTE | 2019-11-22 18:40 | NUR ---
GIVEN MORPHINE VIA IVP. BP 145/92. HR 109. O2SAT 95%. EXPLAINED TO PATIENT INDICATION AND SIDE EFFECTS. PATIENT VERBALIZED UNDERSTANDING. WILL CONTINUE TO MONITOR
--- NOTE | 2019-11-22 19:14 | NUR ---
ENDORSED PATIENT TO PATTERN MARKING SUPERVISOR NURSE IN STABLE CONDITION
--- NOTE | 2019-11-22 19:15 | NUR ---
RECEIVED BEDSIDE REPORT FROM DAY SHIFT NURSE. PATIENT IS AWAKE, ALERT, AND COOPERATIVE RESPIRATION EVEN UNLABORED ON ROOM AIR. NO DISTRESS NOTED. SKIN IS WARM AND DRY. IV PATENT AND INTACT. PLAN OF CARE WAS DISCUSSED. ALL SAFETY MEASURES IN PLACE. BED IS AT LOW POSITION. CALL LIGHT WITHIN REACH AND VERBALIZES ITS USE WILL CONTINUE TO MONITOR.
--- NOTE | 2019-11-22 20:17 | NUR ---
INITIAL ASSESSMENT DONE. VITALS WERE TAKEN. PATIENT IN STABLE CONDITION. FAMILY MEMBER AT BEDSIDE. WILL CONTINUE TO MONITOR.
--- NOTE | 2019-11-22 20:55 | NUR ---
PATIENT LEFT THE FACILITY WITH FAMILY MEMBER IN STABLE CONDITION.
== END 2019-11-22 20:55 | disposition home or self-care (01) | DRG 469 ==
LOC: MED 14:36 → MTU 18:42
PROVIDERS: ADMIT Internal Medicine Pulmonary Disease; ATTEND Internal Medicine Pulmonary Disease
DX: N17.0 Acute kidney failure with tubular necrosis (principal); E11.00 Type 2 diabetes mellitus with hyperosmolarity without nonketotic hyperglycemic-hyperosmolar coma (NKHHC); E87.2 Acidosis; E44.0 Moderate protein-calorie malnutrition; A08.39 Other viral enteritis; E87.8 Other disorders of electrolyte and fluid balance, not elsewhere classified; E87.1 Hypo-osmolality and hyponatremia; E11.65 Type 2 diabetes mellitus with hyperglycemia; D72.819 Decreased white blood cell count, unspecified; I11.0 Hypertensive heart disease with heart failure; I50.810 Right heart failure, unspecified; F17.210 Nicotine dependence, cigarettes, uncomplicated; E86.0 Dehydration; F10.10 Alcohol abuse, uncomplicated; Y90.9 Presence of alcohol in blood, level not specified; K76.9 Liver disease, unspecified; Z68.21 Body mass index [BMI] 21.0-21.9, adult; Z59.0 Homelessness
CPT/HCPCS: 36415; 71045; 76705; 78445; 80053; 80305; 81001; 82009; 82948; 83605; 83690; 83735; 84703; 85025; 86704; 86706; 86708; 86709; 86803; 87040; 87081; 87086; 87340; 87804; 96365; 96367; 96375; 96376; 99285; J1650; J1815; J2270; J2405; J2543; J3370; J3475; J7030; J7060; Q0092